=== PATIENT | female | born 1960 | race African-American/Black ===

== ENCOUNTER 2018-02-25 09:49 | Day surgery (SDC) | payer MEDICAID ==
[~2018-02-25] VITALS: Ht 170.2 cm; Wt 58.1 kg
[2018-02-25] MEDS ORDERED: LACTATED RINGERS 1,000 ML IV SCH (10:30)
[2018-02-25] MEDS ORDERED: NAPR-681 PO (11:24)
[2018-02-25] MEDS ORDERED: PROPOFOL 200MG/20ML VIAL IV ONE ×3 (12:24→12:49)
[2018-02-25] MEDS ORDERED: LIDOCAINE HCL/PF 1% 10 MG/ML 5ML VIAL ONE (12:50)
== END 2018-02-25 14:00 | disposition home or self-care (01) ==
LOC: OR 09:49
PROVIDERS: ATTEND Internal Medicine Gastroenterology
DX: K22.2 Esophageal obstruction (principal); K44.9 Diaphragmatic hernia without obstruction or gangrene; K29.50 Unspecified chronic gastritis without bleeding
CPT/HCPCS: 43239; J3490; J7120; 88305; 88313; J2704